=== PATIENT | female | born 1960 | race Caucasian/White ===

== ENCOUNTER 2017-06-26 17:44 | Inpatient (IN) | payer OTHER, MEDICAID ==
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
[2017-06-26] MEDS ORDERED: Morphine 2 mg/ml ISec IVP STA (19:53)
[2017-06-26] MEDS ORDERED: Morphine 4 mg/ml ISec IVP STA (19:58)
[2017-06-26 20:48] LABS: BASO # 0.01 K/mm3 (0.0-2.0); BASO % 0.1 % (0.0-3.0); EOS # 0.1 (0.0-0.7); EOS % 0.5 % (1.5-5.0); GRAN # 8.23 (1.4-6.5); GRAN % 81.2 % (50.0-68.0); HEMOGLOBIN 12.3 g/dL (12.0-16.0); LYMPH # 1.2 (1.2-3.4); LYMPH % 11.9 % (22.0-35.0); MEAN CELL VOLUME 68.3 fl (80.0-105.0); MEAN CORPUSCULAR HEMOGLOBIN 21.9 pg (25.0-35.0); MEAN PLATELET VOLUME 11.2 fl (7.0-11.0); MONO # 0.6 (0.1-0.6); MONO % 6.3 % (1.0-6.0); RBC 5.62 10^6/uL (3.5-6.1); WHITE BLOOD COUNT 10.1 10^3/ul (4.5-11.0)
[2017-06-26] MEDS: Sodium Chloride 0.9% 1,000 ML IV SCH (20:58)
[2017-06-26 21:03] LABS: INR 1.09 (0.93-1.08); PARTIAL THROMBOPLASTIN TIME 39.7 Seconds (25.1-36.5); PROTHROMBIN TIME 12.5 SECONDS (9.4-12.5)
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
[2017-06-26 22:09] LABS: URINE BILIRUBIN NEGATIVE (NEGATIVE); URINE BLOOD NEGATIVE (NEGATIVE); URINE GLUCOSE (UA) NEGATIVE (NEGATIVE); URINE LEUKOCYTE ESTERASE NEGATIVE Leu/uL (NEGATIVE); URINE PROTEIN NEGATIVE mg/dL (<30 mg/dL); URINE UROBILINOGEN 0.2 E.U./dL (<1 E.U./dL)
[2017-06-26 22:16] LABS: URINE APPEARANCE CLEAR (CLEAR); URINE COLOR YELLOW (YELLOW)
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
[2017-06-27 00:24] LABS: ALB/GLOB RATIO 1.5 (1.1-1.8); ALBUMIN 4.4 g/dL (3.0-4.8); ALT/SGPT 48 U/L (7-56); AST/SGOT 35 U/L (14-36); BLOOD UREA NITROGEN 14 mg/dL (7-21); CALCIUM 9.6 mg/dL (8.4-10.5); GFR AFRICAN-AMERICAN > 60; GFR NON-AFRICAN AMERICAN > 60
[2017-06-27 00:41] VITALS: BMI 32.5
[2017-06-27 07:40] LABS: BASO # 0.01 K/mm3 (0.0-2.0); BASO % 0.2 % (0.0-3.0); EOS % 0.2 % (1.5-5.0); GRAN # 4.43 (1.4-6.5); GRAN % 73.2 % (50.0-68.0); HEMOGLOBIN 10.7 g/dL (12.0-16.0); LYMPH % 16.5 % (22.0-35.0); MEAN CELL VOLUME 68.1 fl (80.0-105.0); MEAN CORPUSCULAR HEMOGLOBIN 21.5 pg (25.0-35.0); MEAN CORPUSCULAR HGB CONC 31.6 g/dl (31.0-37.0); MONO # 0.6 (0.1-0.6); MONO % 9.9 % (1.0-6.0); RBC 4.98 10^6/uL (3.5-6.1); WHITE BLOOD COUNT 6.1 10^3/ul (4.5-11.0)
[2017-06-27 08:05] LABS: ALB/GLOB RATIO 1.4 (1.1-1.8); ALBUMIN 3.9 g/dL (3.0-4.8); ALT/SGPT 41 U/L (7-56); AST/SGOT 28 U/L (14-36); BLOOD UREA NITROGEN 14 mg/dL (7-21); CALCIUM 9.1 mg/dL (8.4-10.5); GFR AFRICAN-AMERICAN > 60; GFR NON-AFRICAN AMERICAN > 60
--- NOTE | 2017-06-27 08:32 | RAD ---
PROCEDURE: CHEST RADIOGRAPH, 1 VIEW HISTORY: admission COMPARISON: None available. FINDINGS: LUNGS: The lungs are clear. PLEURA: No pneumothorax or pleural fluid seen. CARDIOVASCULAR: Normal. OSSEOUS STRUCTURES: No significant abnormalities. VISUALIZED UPPER ABDOMEN: Normal. OTHER FINDINGS: None. IMPRESSION: No active pulmonary disease.
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
[2017-06-27] MEDS ORDERED: Enoxaparin 30 mg Syringe SC ONE (10:00)
[2017-06-27] MEDS ORDERED: Metoprolol Succinate 25 mg XL Tab PO SCH (10:00)
[2017-06-27] MEDS: Pantoprazole 20 mg EC Tab PO SCH (10:07)
--- NOTE | 2017-06-27 14:40 | CARD ---
APPROVED REPORT EKG Measurement Heart [id number] <Conclusion> Normal sinus rhythm Cannot rule out Inferior infarct, age undetermined Abnormal ECG
[2017-06-27] MEDS ORDERED: MethylPREDNISolone Depo 40 mg/ml Inj IM ONE (16:34)
[2017-06-27] MEDS ORDERED: Bupivacaine 0.5% Inj(30mL) IJ ONE (16:34)
[2017-06-27] MEDS: Sodium Chloride 0.9% 1,000 ML IV SCH (16:52)
--- NOTE | 2017-06-27 17:29 | CARD ---
APPROVED REPORT EXAM: Two-dimensional and M-mode echocardiogram with Doppler and color Doppler. INDICATION Pre-Op LVFX 2D DIMENSIONS Left Atrium (2D)4.8 (1.6-4.0cm)IVSd1.0 (0.7-1.1cm) LVDd4.3 (3.9-5.9cm)PWd1.1 (0.7-1.1cm) LVDs2.8 (2.5-4.0cm)FS (%) 34.5 % LVEF (%)63.9 (>50%) M-Mode DIMENSIONS Aortic Root3.20 (2.2-3.7cm)Aortic Cusp Exc.1.60 (1.5-2.0cm) Aortic Valve AoV Peak Fwcvqteo921.0cm/sAoV VTI41.5cmAO Peak GR.13mmHg LVOT Peak Qwjpohmj384.0cm/sLVOT VTI36.70cmAO Mean GR.7mmHg Mitral Valve MV E Tbrquffq17.1cm/sMV A Zcwwfsvz99.4cm/sE/A ratio0.9 TDI Lateral E' Peak V13.30cm/sMedial E' Peak V6.73cm/sE/Lateral E'6.5 E/Medial E'12.9 Pulmonary Valve PV Peak Mvrulyii246.0cm/sPV Peak Grad.4mmHg Tricuspid Valve TR Peak Kkgywvgu047gb/sRAP [id number] Peak Gr.30mmHg [id number] LEFT VENTRICLE The left ventricle is normal size. There is normal left ventricular wall thickness. The left ventricular function is normal.EF-60-65% There is normal LV segmental wall motion. Transmitral Doppler flow pattern is Grade III-reversible restrictive diastolic dysfunction. No left ventricle thrombus noted on this study. There is no ventricular septal defect visualized. There is no left ventricular aneurysm. There is no mass noted in the left ventricle. RIGHT VENTRICLE The right ventricle is normal size. There is normal right ventricular wall thickness. The right ventricular systolic function is normal. ATRIA The left atrium is mildly dilated. The right atrium size is normal. The interatrial septum is intact with no evidence for an atrial septal defect. AORTIC VALVE The aortic valve is thickened but opens well. The aortic valve is mildly sclerotic. There is trace aortic regurgitation. There is no aortic valvular stenosis. There is no aortic valvular vegetation. MITRAL VALVE The mitral valve is thickened but opens well. Mitral regurgitation is trace. There is no mitral valve stenosis. There is no evidence of mitral valve prolapse. TRICUSPID VALVE The tricuspid valve leaflets are thickened , but open well. There is trace to mild tricuspid regurgitation.RVSP-40 mmof hg. There is no tricuspid valve stenosis. PULMONIC VALVE The pulmonary valve is normal in structure. There is trace to mild pulmonic valvular regurgitation. There is no pulmonic valvular stenosis. GREAT VESSELS The aortic root is normal in size. The ascending aorta is normal in size. The pulmonary artery is normal. The IVC is normal in size and collapses >50% with inspiration. PERICARDIAL EFFUSION There is no pleural effusion. There is no pericardial effusion. <Conclusion> The left ventricle is normal size. There is normal left ventricular wall thickness. The left ventricular function is normal.EF-60-65% There is trace aortic regurgitation. Mitral regurgitation is trace. There is trace to mild tricuspid regurgitation.RVSP-40 mmof hg. The IVC is normal in size and collapses >50% with inspiration. There is no pericardial effusion.
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
[2017-06-28] MEDS: Sodium Chloride 0.9% 1,000 ML IV SCH (02:31)
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
[2017-06-28] MEDS: Pantoprazole 20 mg EC Tab PO SCH (05:50)
[2017-06-28 07:11] LABS: ALB/GLOB RATIO 1.3 (1.1-1.8); ALBUMIN 3.7 g/dL (3.0-4.8); ALT/SGPT 37 U/L (7-56); AST/SGOT 24 U/L (14-36); BLOOD UREA NITROGEN 16 mg/dL (7-21); CALCIUM 8.8 mg/dL (8.4-10.5); GFR AFRICAN-AMERICAN > 60; GFR NON-AFRICAN AMERICAN > 60; HDL CHOLESTEROL 54 mg/dL (29-60)
[2017-06-28 07:26] LABS: LDL CHOLESTEROL 114 mg/dL (0-129)
[2017-06-28 07:50] LABS: BASO # 0.01 K/mm3 (0.0-2.0); BASO % 0.2 % (0.0-3.0); EOS # 0.2 (0.0-0.7); EOS % 4.9 % (1.5-5.0); GRAN # 1.89 (1.4-6.5); GRAN % 46.4 % (50.0-68.0); LYMPH # 1.5 (1.2-3.4); LYMPH % 35.5 % (22.0-35.0); MEAN CELL VOLUME 68.8 fl (80.0-105.0); MEAN CORPUSCULAR HEMOGLOBIN 21.9 pg (25.0-35.0); MEAN CORPUSCULAR HGB CONC 31.8 g/dl (31.0-37.0); MEAN PLATELET VOLUME 11.2 fl (7.0-11.0); MONO # 0.5 (0.1-0.6); RBC 5.03 10^6/uL (3.5-6.1); WHITE BLOOD COUNT 4.1 10^3/ul (4.5-11.0)
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
[2017-06-28] MEDS ORDERED: Bupivacaine 0.5% Inj(30mL) ONE (13:29)
[2017-06-28] MEDS ORDERED: Succinylcholine 200 mg/10 ml Inj IV ONE (13:43)
[2017-06-28] MEDS ORDERED: Midazolam 2 MG/2 ML VIAL ONE (13:43)
[2017-06-28] MEDS ORDERED: Propofol 10 mg/ml Inj (20 ML) ONE (13:43)
[2017-06-28] MEDS ORDERED: Rocuronium 10 mg/ml (5 ml) ONE (13:43)
[2017-06-28] MEDS ORDERED: Lidocaine 2% Inj (20ml) ONE (13:45)
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
[2017-06-28] MEDS ORDERED: Vancomycin 1 g Inj ONE (14:12)
[2017-06-28] MEDS ORDERED: Neostigmine Methylsulfate 3mg/3ml Syringe IV ONE (14:54)
[2017-06-28] MEDS ORDERED: Glycopyrrolate 0.2 mg/ml (2ml vial) ONE (15:46)
[2017-06-28] MEDS ORDERED: Lactated Ringer's 1,000 ML IV SCH (17:00)
[2017-06-28] MEDS: HYDROmorphone 0.5 mg/0.5 ml ISec IVP PRN ×2 (17:14→17:30)
[2017-06-28] MEDS ORDERED: HYDROmorphone 0.5 mg/0.5 ml ISec ONE ×2 (17:14→17:30)
--- NOTE | 2017-06-28 18:47 | RAD ---
PROCEDURE: Left Knee Radiographs. HISTORY: Pain. COMPARISON: 06/26/2017 FINDINGS: BONES: AP and lateral portable views of the left knee demonstrate the patient to be status post ORIF for a nondisplaced lateral tibial condylar fracture. The fracture fragments are in near anatomic alignment. Orthopedic hardware appears intact. JOINTS: Normal. No osteoarthritis. JOINT EFFUSION: None. OTHER FINDINGS: None. IMPRESSION: ORIF lateral tibial condylar fracture.
[2017-06-28 19:15] LABS: EOS % 0.3 % (1.5-5.0); GRAN # 6.01 (1.4-6.5); GRAN % 83.9 % (50.0-68.0); HEMOGLOBIN 10.3 g/dL (12.0-16.0); LYMPH # 0.9 (1.2-3.4); LYMPH % 11.9 % (22.0-35.0); MEAN CORPUSCULAR HEMOGLOBIN 22.2 pg (25.0-35.0); MEAN CORPUSCULAR HGB CONC 32.1 g/dl (31.0-37.0); MEAN PLATELET VOLUME 10.8 fl (7.0-11.0); MONO # 0.3 (0.1-0.6); MONO % 3.9 % (1.0-6.0); RBC 4.65 10^6/uL (3.5-6.1); WHITE BLOOD COUNT 7.2 10^3/ul (4.5-11.0)
[2017-06-28] MEDS: Oxycodone/Acetaminophen 5/325 mg Tab PO PRN (21:21)
[2017-06-28] MEDS: ceFAZolin 1 gm in NS 1 GM/100 ML BAG IVPB SCH (21:21)
[2017-06-29] MEDS: Morphine 4 mg/ml ISec IVP PRN (00:05)
--- NOTE | 2017-06-29 04:48 | OP ---
PROCEDURE DATE: 06/29/2017 PREOPERATIVE DIAGNOSES: Displaced comminuted lateral tibial plateau fracture, split, depressed, closed injury POSTOPERATIVE DIAGNOSES: Displaced comminuted lateral tibial plateau fracture, split, depressed, closed injury; lateral meniscus tear that was repaired. PROCEDURES: Open reduction and internal fixation with a Biomet contoured proximal tibial buttress plate with 3 screws distally, cortical; two locking; and 7 locking screws on the proximal part of the plate subchondral. Repair of the lateral meniscus.exam under anesthesi of the left knee PRODUCTION DESIGNER SURGEON: Dr. Gina Ugarte. DESCRIPTION OF PROCEDURE: In summary, the patient was taken to OR. Under general anesthesia via endotracheal tube, left leg prepped in a sterile fashion from the 2-day old fracture with a swelling that was receding. After we prepped and draped the leg, it actually showed that the fracture was displaced laterally with a lateral tibial plateau fracture, so we made an incision approximately 8 inches long, starting at 4 inches below the joint line and just lateral to the crest of the tibia, going over Gerdy's tubercle and then in the direction between the patella and the lateral femoral condyle. Deep knife was used to go through the subcutaneous tissue, which was spread with the retractors and then we carefully opened up the fascia including the anterior compartment and released the muscle from the pressure and then went over the area of tibial band along Gerdy's tubercle to expose the joint line and proximal to the lateral femoral condyle. We saw that the lateral meniscus was torn at its periphery from the coronary ligaments and this was prepared to repair after we did the ORIF of the tibial plateau fracture. This was held in a static position with some sutures, so we can see the actual fracture, which was displaced because the fracture fragment was displaced approximately 1 cm distally. So, we took out some cortical common iliac bone that was too small to utilize for weightbearing purposes, less than 1 cm, so that will granulation tissue and that was not a weightbearing portion. The main thing is to repair the lateral meniscus tear. Once we got everything organized and clean, we held the fracture reduced with the help of the plate and K-wires and then put a nonlocking screw through the plate proximally to secure the plate to the lateral portion of the tibial plateau and then another nonlocking screw in the distal part of the plate to secure the plate to the bone. The rest of them were locking screws, which were counted to 5 screws proximally and two distally. X-rays showed good position. We could move the knee without any crepitus. We repaired the meniscus with 0 Vicryl suture through the plate into the coronary ligament and then covered the plate with the previously opened iliotibial band with 3-0 Vicryl interrupted and subcutaneous 2-0 Vicryl, skin with a combination of 2-0 nylon and stainless steel gibson. Patient was placed in a compression dressing loosely applied and sent to the recovery room in good condition. No tourniquet was utilized.the medial and lateral ligaments also felt stable to exam as wellas the cruciates also felt competent. Miki Nguyễn DO MTDD
[2017-06-29] MEDS: Pantoprazole 20 mg EC Tab PO SCH (05:31)
[2017-06-29] MEDS: ceFAZolin 1 gm in NS 1 GM/100 ML BAG IVPB SCH ×3 (05:31→22:23)
[2017-06-29 07:50] LABS: BASO # 0.01 K/mm3 (0.0-2.0); BASO % 0.1 % (0.0-3.0); EOS % 0.4 % (1.5-5.0); GRAN # 6.9 (1.4-6.5); GRAN % 77.2 % (50.0-68.0); HEMOGLOBIN 9.9 g/dL (12.0-16.0); LYMPH % 10.9 % (22.0-35.0); MEAN CELL VOLUME 68.3 fl (80.0-105.0); MEAN CORPUSCULAR HEMOGLOBIN 21.6 pg (25.0-35.0); MEAN CORPUSCULAR HGB CONC 31.6 g/dl (31.0-37.0); MONO % 11.4 % (1.0-6.0); RBC 4.58 10^6/uL (3.5-6.1); RED CELL DISTRIBUTION WIDTH 15.8 % (11.5-14.5)
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
[2017-06-29 08:12] LABS: ALB/GLOB RATIO 1.2 (1.1-1.8); ALBUMIN 3.4 g/dL (3.0-4.8); ALT/SGPT 29 U/L (7-56); AST/SGOT 30 U/L (14-36); BLOOD UREA NITROGEN 12 mg/dL (7-21); CALCIUM 8.5 mg/dL (8.4-10.5); GFR AFRICAN-AMERICAN > 60; GFR NON-AFRICAN AMERICAN > 60
[2017-06-29] MEDS: Enoxaparin 40 mg Syringe SC SCH (10:34)
--- NOTE | 2017-06-29 13:17 | RAD ---
PROCEDURE: Intraoperative Fluoroscopy. HISTORY: O.R.I.F. FX. LEFT TIBIAL PLATEAU FINDINGS: Fluoroscopic assistance was provided. 62 point seconds fluoroscopy time utilized. Radiation dose = 2.5 mGy. Please refer to the operative report from NIKKIE Alexander.
--- NOTE | 2017-06-29 14:10 | PN ---
DATE: 06/29/2017 LOCATION: Patient is currently in room 566, bed 3. SUBJECTIVE: She underwent ORIF of her left tibial plateau fracture and repair of the lateral meniscus tear and is fairly comfortable today. She was sitting up in bed and at the edge of bed, she eats breakfast, but I told her to elevate the leg on a pillow and only sit at the bed when she is eating at the edge of the bed and to go on recliner chair today. We will get therapy for amputation, touch toe pressure of the left knee to not put too much stress on the meniscus repair that is was suturedto the capsule. She should be able to put touch toe pressure on the toes to help her ambulate more stably, so she does not fall with walker. We will change her dressing in 2 to 3 days and then we have to decide if she is going home or to subacute rehab, but no fever. The blood work looks good and she is doing a spirometry and she has SCD on the right leg and a compression dressing on the left leg. Miki Nguyễn DO [facility]
[2017-06-29] MEDS ORDERED: POLYETHYLENE GLYCOL 3350 17 GM/Dose PACKET PO ONE (15:58)
[2017-06-29 18:19] LABS: GRAN # 6.73 (1.4-6.5); GRAN % 76.3 % (50.0-68.0); HEMOGLOBIN 10.7 g/dL (12.0-16.0); LYMPH % 11.7 % (22.0-35.0); MEAN CELL VOLUME 68.3 fl (80.0-105.0); MEAN CORPUSCULAR HGB CONC 32.2 g/dl (31.0-37.0); MEAN PLATELET VOLUME 11.1 fl (7.0-11.0); MONO # 1.1 (0.1-0.6); RBC 4.86 10^6/uL (3.5-6.1); RED CELL DISTRIBUTION WIDTH 15.8 % (11.5-14.5); WHITE BLOOD COUNT 8.8 10^3/ul (4.5-11.0)
[2017-06-29] MEDS: Oxycodone/Acetaminophen 5/325 mg Tab PO PRN (22:36)
[2017-06-30] MEDS: Pantoprazole 20 mg EC Tab PO SCH (06:55)
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
[2017-06-30 08:06] LABS: BASO # 0.01 K/mm3 (0.0-2.0); BASO % 0.1 % (0.0-3.0); EOS % 0.6 % (1.5-5.0); GRAN # 4.69 (1.4-6.5); LYMPH # 1.6 (1.2-3.4); LYMPH % 22.5 % (22.0-35.0); MEAN CELL VOLUME 68.6 fl (80.0-105.0); MEAN CORPUSCULAR HEMOGLOBIN 21.8 pg (25.0-35.0); MEAN CORPUSCULAR HGB CONC 31.8 g/dl (31.0-37.0); MEAN PLATELET VOLUME 11.1 fl (7.0-11.0); MONO # 0.9 (0.1-0.6); MONO % 11.8 % (1.0-6.0); RBC 4.58 10^6/uL (3.5-6.1); RED CELL DISTRIBUTION WIDTH 15.7 % (11.5-14.5); WHITE BLOOD COUNT 7.2 10^3/ul (4.5-11.0)
[2017-06-30] MEDS: Oxycodone/Acetaminophen 5/325 mg Tab PO PRN ×2 (09:38→21:53)
[2017-06-30] MEDS: Enoxaparin 40 mg Syringe SC SCH (09:41)
[2017-07-01] MEDS: Pantoprazole 20 mg EC Tab PO SCH (05:51)
[2017-07-01] MEDS: Sodium Chloride 0.9% 1,000 ML IV SCH (05:51)
[2017-07-01 07:24] LABS: BASO # 0.01 K/mm3 (0.0-2.0); BASO % 0.2 % (0.0-3.0); EOS # 0.2 (0.0-0.7); EOS % 2.8 % (1.5-5.0); GRAN # 3.05 (1.4-6.5); GRAN % 53.7 % (50.0-68.0); HEMOGLOBIN 9.8 g/dL (12.0-16.0); LYMPH # 1.8 (1.2-3.4); LYMPH % 31.3 % (22.0-35.0); MEAN CELL VOLUME 68.6 fl (80.0-105.0); MEAN CORPUSCULAR HEMOGLOBIN 21.7 pg (25.0-35.0); MEAN CORPUSCULAR HGB CONC 31.6 g/dl (31.0-37.0); MEAN PLATELET VOLUME 10.5 fl (7.0-11.0); MONO # 0.7 (0.1-0.6); RBC 4.52 10^6/uL (3.5-6.1); RED CELL DISTRIBUTION WIDTH 15.8 % (11.5-14.5); WHITE BLOOD COUNT 5.7 10^3/ul (4.5-11.0)
[2017-07-01 07:54] LABS: BLOOD UREA NITROGEN 16 mg/dL (7-21); CALCIUM 8.8 mg/dL (8.4-10.5); GFR AFRICAN-AMERICAN > 60; GFR NON-AFRICAN AMERICAN > 60
[2017-07-01] MEDS: Enoxaparin 40 mg Syringe SC SCH (10:00)
--- NOTE | 2017-07-01 13:16 | PN ---
DATE: 07/01/2017 LOCATION: Room 566, bed 3. Three days postop for left knee fracture. We will send her to Therapy for the first time since surgery because of the weekend and shift changes. She could be able to ambulate, touch toe pressure to the left knee. There is meniscus and triggering her fractured tibial plateau on the lateral side. We will change the dressing tomorrow to evaluate she could go home soon when she is cleared by Therapy with usable walker. We will follow her closely. There is no fever and no signs of infection or unusual occurrences. Miki Nguyễn DO
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
[2017-07-01] MEDS: Morphine 4 mg/ml ISec IVP PRN (22:50)
[2017-07-02] MEDS: Pantoprazole 20 mg EC Tab PO SCH (05:27)
[2017-07-02 07:09] LABS: BASO # 0.01 K/mm3 (0.0-2.0); BASO % 0.2 % (0.0-3.0); EOS # 0.2 (0.0-0.7); EOS % 3.8 % (1.5-5.0); GRAN # 2.76 (1.4-6.5); HEMOGLOBIN 9.6 g/dL (12.0-16.0); LYMPH # 1.8 (1.2-3.4); LYMPH % 33.3 % (22.0-35.0); MEAN CELL VOLUME 68.8 fl (80.0-105.0); MEAN CORPUSCULAR HEMOGLOBIN 21.6 pg (25.0-35.0); MEAN CORPUSCULAR HGB CONC 31.4 g/dl (31.0-37.0); MEAN PLATELET VOLUME 10.5 fl (7.0-11.0); MONO # 0.6 (0.1-0.6); MONO % 10.7 % (1.0-6.0); RBC 4.45 10^6/uL (3.5-6.1); RED CELL DISTRIBUTION WIDTH 15.7 % (11.5-14.5); WHITE BLOOD COUNT 5.3 10^3/ul (4.5-11.0)
[2017-07-02] MEDS: Enoxaparin 40 mg Syringe SC SCH (10:16)
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
[2017-07-03] MEDS: Pantoprazole 20 mg EC Tab PO SCH (06:13)
[2017-07-03] MEDS: Enoxaparin 40 mg Syringe SC SCH (09:18)
[2017-07-03] MEDS: Multivitamin Therapeutic Tab PO SCH (09:19)
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
[2017-07-04] MEDS: Pantoprazole 20 mg EC Tab PO SCH (05:01)
--- NOTE | 2017-07-04 08:50 | PROCN ---
DATE: 07/03/2017 LOCATION: Room 566, bed 3. DESCRIPTION OF PROCEDURE: I took the opportunity to change her dressing on left leg. It was very clean and dry. I have put a new antibiotic dressing on her leg with a smaller dressing. Some swelling is going down and she is going to therapy for ambulation, touch toe pressure. I encouraged her to keep the knee extended, so she does not end up with a flexion contracture, which is common after tibial plateau fracture with a torn meniscus, and she can ambulate with a walker, touch toe pressure. I will follow her closely while she is the hospital and every week or so when she is outpatient. Miki Nguyễn DO
[2017-07-04] MEDS: Enoxaparin 40 mg Syringe SC SCH (10:11)
[2017-07-04] MEDS: Multivitamin Therapeutic Tab PO SCH (10:16)
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
[2017-07-04 23:19] VITALS: RESP 20; O2SAT 99
[2017-07-05] MEDS: Pantoprazole 20 mg EC Tab PO SCH (06:49)
[2017-07-05 09:11] VITALS: PULSE 64; TEMP 97.8
[2017-07-05] MEDS: Multivitamin Therapeutic Tab PO SCH (09:53)
[2017-07-05] MEDS: Enoxaparin 40 mg Syringe SC SCH (09:53)
[2017-07-05 09:58] VITALS: BP 110/66
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
== END 2017-07-05 17:26 | DRG 488 ==
LOC: ED 17:44 → ERH 20:28 → 5RNO 23:40
PROVIDERS: ADMIT Internal Medicine; ATTEND Internal Medicine
PROC: 0S9D3ZZ Drainage of Left Knee Joint, Percutaneous Approach (ICD-10-PCS; 2017-06-27)
PROC: 0SQD0ZZ Repair Left Knee Joint, Open Approach (ICD-10-PCS; 2017-06-28)
PROC: 0QSH04Z Reposition Left Tibia with Internal Fixation Device, Open Approach (ICD-10-PCS; principal; 2017-06-28 13:30)
DX: S82.142A Displaced bicondylar fracture of left tibia, initial encounter for closed fracture (principal); M25.062 Hemarthrosis, left knee; S83.282A Other tear of lateral meniscus, current injury, left knee, initial encounter; I10 Essential (primary) hypertension; V03.10XA Pedestrian on foot injured in collision with car, pick-up truck or van in traffic accident, initial encounter; Y92.488 Other paved roadways as the place of occurrence of the external cause; Z90.710 Acquired absence of both cervix and uterus

== ENCOUNTER 2017-08-27 13:10 | Emergency (ER) | payer MEDICAID, OTHER ==
[2017-08-27 13:11] VITALS: BMI 32.5
[2017-08-27 14:01] VITALS: TEMP 98
--- NOTE | 2017-08-27 14:30 | ED PDOC ---
Addendum entered and electronically signed by Marely Barcenas PA-C 08/27/17 17:22 : Addendum Addendum: 08/27/17 17:[address] Nguyễn, regarding wound dehiscence. No erythema or discharge. VS was normal. Patient recommended cbc, cmp, c reactive, sed rate. To discharge patient home. He will f/u blood test result. to call office for appointment. Original Note: Arrival/HPI - General Historian: Patient - History of Present Illness Time/Duration: Other (see hpi) Context: Home <Marely Barcenas - Last Filed: 08/27/17 17:20> <Zhane Dunham - Last Filed: 08/27/17 20:15> - General Chief Complaint: Lower Extremity Problem/Injury Time Seen by Provider: 08/27/17 13:46 - History of Present Illness Narrative History of Present Illness (Text): 08/27/17 14:00 This 57 yo female who denies pmh, presents to this ED complaining left knee surgical wound is not healing. Patient thinks wound is infected. Patient had left knee surgery last month by Dr. Nguyễn for tibial plateau Fx. Patient denies knee pain, fever, erythema, discharge, recent fall, sob, cp, leg swelling, calf pain, dizziness, paresthesias or weakness Patient admits taking Clinadamycin 300 mg Cap, TID x 5 days, and applying Bactroban ointment after wound care. (Marely Barcenas) Past Medical History - Provider Review Nursing Documentation Reviewed: Yes - Infectious Disease Hx of Infectious Diseases: None - Cardiac Hx Hypertension: Yes - Pulmonary Hx Respiratory Disorders: No - Neurological Hx Neurological Disorder: No - Musculoskeletal/Rheumatological Hx Falls: Yes Hx Fractures: Yes - Psychiatric Hx Psychophysiologic Disorder: No Hx Substance Use: No - Surgical History Hx Hysterectomy: Yes - Anesthesia Hx Anesthesia Reactions: No Hx Malignant Hyperthermia: No - Suicidal Assessment Feels Threatened In Home Enviroment: No <Marely Barcenas - Last Filed: 08/27/17 17:20> Family/Social History - Physician Review Nursing Documentation Reviewed: Yes Family/Social History: Other (noncontributory) Smoking Status: Never Smoked Hx Alcohol Use: No Hx Substance Use: No Hx Substance Use Treatment: No <Barcenas,Nahim P - Last Filed: 08/27/17 17:20> Allergies/Home Meds <Barcenas,Alejandraim P - Last Filed: 08/27/17 17:20> <Zhane Dunham - Last Filed: 08/27/17 20:15> Allergies/Adverse Reactions: Allergies No Known Allergies Allergy (Verified 08/27/17 13:24) Home Medications: Home Meds Medication Instructions Recorded Confirmed Clindamycin HCl 150 mg PO TID 08/27/17 08/27/17 Mupirocin 2% Cream 1 appl TOP BID 08/27/17 08/27/17 Review of Systems - Review of Systems Constitutional: Normal. absent: Fatigue, Weight Change, Fevers Eyes: Normal ENT: Normal Respiratory: Normal Cardiovascular: Normal Gastrointestinal: Normal Genitourinary Female: Normal Musculoskeletal: Other (See hpi) Skin: Normal Neurological: Normal Endocrine: Normal Hemo/Lymphatic: Normal Psychiatric: Normal <Barcenas,Alejandraim P - Last Filed: 08/27/17 17:20> Physical Exam Temperature: Afebrile Blood Pressure: Normal Pulse: Regular Respiratory Rate: Normal Appearance: Positive for: Well-Appearing, Non-Toxic, Comfortable Pain Distress: None Mental Status: Positive for: Alert and Oriented X 3 - Systems Exam Head: Present: Atraumatic, Normocephalic Pupils: Present: PERRL Extroacular Muscles: Present: EOMI Conjunctiva: Present: Normal Mouth: Present: Moist Mucous Membranes Neck: Present: Normal Range of Motion, Trachea Midline. No: Meningeal Signs, Lymphadenopathy Respiratory/Chest: Present: Clear to Auscultation, Good Air Exchange. No: Respiratory Distress, Accessory Muscle Use, Wheezes Cardiovascular: Present: Regular Rate and Rhythm, Normal S1, S2. No: Murmurs Abdomen: Present: Normal Bowel Sounds. No: Tenderness, Distention, Peritoneal Signs Upper Extremity: Present: Normal Inspection, Normal ROM, NORMAL PULSES, Neurovascularly Intact, Capillary Refill < 2s Lower Extremity: Present: NORMAL PULSES, Normal ROM, Neurovascularly Intact, Capillary Refill < 2 s, Other ((+) left surgical wound, approx 20 cm. There is an area of 2 cm dehiscense with granulation within the wound. No surrounding erythema. No discharge. No tenderness on palpation. No septic Knee joint. No palpable cord. No calf tenderness. No streaking erythema. No femoral lymphadenopathy). No: Edema, CALF TENDERNESS, Cyanosis, Eriberto's Sign, Tenderness, Swelling, Erythema, Temperature Abnormalties Neurological: Present: GCS=15, CN II-XII Intact, Speech Normal, Motor Func Grossly Intact, Normal Sensory Function, Normal Cerebellar Funct, Gait Normal ( with a walker) Skin: Present: Warm, Dry, Normal Color, Other (see LE). No: Rashes Psychiatric: Present: Alert, Oriented x 3, Normal Insight, Normal Concentration <Barcenas,Nahim P - Last Filed: 08/27/17 17:20> Vital Signs Temp Pulse Resp BP Pulse Ox 08/27/17 18:20 98 F 63 18 129/71 99 08/27/17 15:40 65 18 125/71 98 08/27/17 13:20 98 F 60 17 129/79 98 Medical Decision Making Re-evaluation Time: 15:40 Reassessment Condition: Re-examined, Improved <NarinderNahim P - Last Filed: 08/27/17 17:20> <Zhane Dunham - Last Filed: 08/27/17 20:15> ED Course and Treatment: 08/27/17 15:40 Re-evaluation. Patient feels better. Discussed results and plan with patient who expresses understanding. All questions answered and there is agreement with the plan to discharge home with instructions. Patient stable for discharge. Return if symptoms persist or worsen. I recommended patient to f/u Dr. Berman for revaluation. to continue with Clindamycin as instructed by her doctor. Clean wound daily with soap and water. Return to ED if wound gets infected. (Barcenas,Nahim P) - Lab Interpretations Lab Results: 08/27/17 17:44 08/27/17 17:44 Lab Results 08/27/17 17:44: Sodium 143, Potassium 4.5, Chloride 106, Carbon Dioxide 27, Anion Gap 15, BUN 14, Creatinine 0.5 L, Est GFR ( Amer) > 60, Est GFR ( Non-Af Amer) > 60, Random Glucose 91, Calcium 9.4, Total Bilirubin 0.4, AST 18, ALT 26, Alkaline Phosphatase 95, C-Reactive Protein Pending, Total Protein 7.9, Albumin 4.4, Globulin 3.5, Albumin/Globulin Ratio 1.2 06/19/18 17:44: WBC 4.2 L D, RBC 5.42, Hgb 11.9 L D, Hct 36.7, MCV 67.7 L, MCH 22.0 L, MCHC 32.4, RDW 15.4 H, Plt Count 304, MPV 11.1 H, Gran % 43.3 L, Lymph % (Auto) 48.6 H, [place] % (Auto) 6.2 H, Eos % (Auto) 1.7, Baso % (Auto) 0.2, Gran # 1.81, Lymph # (Auto) 2.0, [place] # (Auto) 0.3, Eos # (Auto) 0.1, Baso # (Auto) 0.01, ESR 20 - RAD Interpretation Narrative RAD Interpretations (Text): 08/27/17 16:35 Knee x-rays: Post op changes. No acute Fx or FB (Marely Barcenas) Radiology Orders: 08/27/17 14:30 KNEE LEFT 2 VIEWS (AP & LAT) [RAD] Stat - PA / WELFARE SERVICE AIDE / Resident Statement / has reviewed & agrees with the documentation as recorded. <Zhane Dunham - Last Filed: 08/27/17 20:15> Disposition/Present on Arrival - Present on Arrival Any Indicators Present on Arrival: No History of DVT/PE: No History of Uncontrolled Diabetes: No Urinary Catheter: No History of Decub. Ulcer: No History Surgical Site Infection Following: None - Disposition Have Diagnosis and Disposition been Completed?: Yes Disposition Time: 15:41 Patient Plan: Discharge <Marely Barcenas - Last Filed: 08/27/17 17:20> <Zhane Dunham - Last Filed: 08/27/17 20:15> - Disposition Diagnosis: Encounter for wound re-check, Wound dehiscence, surgical Disposition: HOME/ ROUTINE Condition: GOOD Discharge Instructions (ExitCare): Wound Dehiscence (DC) Additional Instructions: Call doctor Delma for follow up visit in 1-2 days. Take medication as instructed by your doctor. Clean wound daily with soap and water. Return to emergency if leg becomes swelling, painful. Or if wound gets infected Referrals: Lizandro Hollins MD [Primary Care Provider] - Follow up with primary Mastromonaco,Edward, DO [Staff Provider] - Follow up with primary Forms: [employer] (Turkmen)
[2017-08-27 15:40] VITALS: RESP 18
--- NOTE | 2017-08-27 16:12 | RAD ---
PROCEDURE: Left Knee Radiographs. HISTORY: Pain. COMPARISON: 06/28/2017 FINDINGS: BONES: There is some new heterotopic bone formation along the medial femoral condyle. There is a plate and multiple screws in the proximal tibia. No acute fracture JOINTS: Normal. No osteoarthritis. JOINT EFFUSION: None. OTHER FINDINGS: None. IMPRESSION: No acute findings
[2017-08-27 17:55] LABS: BASO # 0.01 K/mm3 (0.0-2.0); BASO % 0.2 % (0.0-3.0); EOS # 0.1 (0.0-0.7); EOS % 1.7 % (1.5-5.0); GRAN # 1.81 (1.4-6.5); GRAN % 43.3 % (50.0-68.0); HEMOGLOBIN 11.9 g/dL (12.0-16.0); LYMPH % 48.6 % (22.0-35.0); MEAN CELL VOLUME 67.7 fl (80.0-105.0); MEAN CORPUSCULAR HGB CONC 32.4 g/dl (31.0-37.0); MEAN PLATELET VOLUME 11.1 fl (7.0-11.0); MONO # 0.3 (0.1-0.6); MONO % 6.2 % (1.0-6.0); RBC 5.42 10^6/uL (3.5-6.1); RED CELL DISTRIBUTION WIDTH 15.4 % (11.5-14.5); WHITE BLOOD COUNT 4.2 10^3/ul (4.5-11.0)
[2017-08-27 18:05] LABS: ALB/GLOB RATIO 1.2 (1.1-1.8); ALBUMIN 4.4 g/dL (3.0-4.8); ALT/SGPT 26 U/L (7-56); AST/SGOT 18 U/L (14-36); BLOOD UREA NITROGEN 14 mg/dL (7-21); CALCIUM 9.4 mg/dL (8.4-10.5); GFR AFRICAN-AMERICAN > 60; GFR NON-AFRICAN AMERICAN > 60
[2017-08-27 18:59] VITALS: BP 129/71; PULSE 63; O2SAT 99
== END 2017-08-27 18:20 | disposition home or self-care (01) ==
LOC: ED 13:10
DX: T81.30XA Disruption of wound, unspecified, initial encounter (principal); Y83.8 Other surgical procedures as the cause of abnormal reaction of the patient, or of later complication, without mention of misadventure at the time of the procedure; Y92.89 Other specified places as the place of occurrence of the external cause; I10 Essential (primary) hypertension